=== PATIENT | female | born 1980 | race Caucasian/White ===

== ENCOUNTER 2016-10-08 14:25 | Emergency (ER) | payer OTHER ==
[~2016-10-08] VITALS: Ht 162.6 cm; Wt 122.5 kg
[~2016-10-08 14:25] MED LIST: ACETAMINOPHEN500 MG PO; ALDOMET250 MG PO; ASPIRIN81 M1 PO; FIORICET,ESG1 TABLET PO; FISH OIL300 MG PO; FLEXERIL10 MG PO; LISINOPRIL10 MG PO; Levothroid,Synthroid PO; MOTRIN600 MG PO; Motrin PO; Natalcare Rx,Pramile PO; PEPCID20 MG PO; Percocet 5/325,Endoc PO; SINGULAIR10 MG PO; SYNTHROID150 MCG PO; TRAMADOL HCL50 MG PO; VITAMIN E100 UNIT PO; ZESTORETIC,P1 TABLET PO; ZOFRAN ODT4 MG PO
[2016-10-08 15:07] LABS: HEMATOCRIT 38.3 % (36.0-46.0); MCH 26.5 PG (29.0-34.0); MCHC 32.9 G/DL (30.0-36.0); MCV 80.6 FL (83-99); MEAN PLAT.VOLUME 9.3 uM^3 (9.5-12.4); PLATELET COUNT 268 K/uL (156-360); RBC DIS.WIDTH-SD 40.4 % (39-53); RED BLOOD COUNT 4.75 M/uL (3.80-5.20); WHITE BLOOD COUNT 8.8 K/uL (4.1-10.2)
[2016-10-08 15:17] LABS: CHLORIDE 103 mEq/L (99-109); POTASSIUM 4.1 mEq/L (3.7-5.4); SODIUM 138 mEq/L (136-147)
[2016-10-08 15:19] LABS: GLUCOSE 149 mg/dL (70-99)
[2016-10-08 15:20] LABS: ANION GAP 9 MEQ/L (2-14)
[2016-10-08 15:21] LABS: TOTAL BILIRUBIN 0.3 mg/dL (0.0-1.0)
[2016-10-08 15:23] LABS: ALKALINE PHOSPHATASE 64 IU/L (3-129); GFR ESTIMATE (CALCULATED) > 59 mL/min/
[2016-10-08 15:24] LABS: UREA NITROGEN (BUN) 8 mg/dL (9-23)
[2016-10-08 16:03] LABS: ADD MIUA? YES; BILIRUBIN NEGATIVE; BLOOD MODERATE; COLOR YELLOW ((YELLOW)); GLUCOSE (STRIP) NEGATIVE; KETONES NEGATIVE; LEUKOCYTES MODERATE; NITRITE POSITIVE; PROTEIN (STRIP) 30; UROBILINOGEN 0.2 MG/DL (0.2-1.0)
[2016-10-08 16:23] LABS: BACTERIA 3+ /HPF; CASTS NONE SEEN /LPF; CRYSTALS NONE SEEN; EPITHELIAL CELLS 1+ /HPF; MUCUS NONE SEEN /LPF; RED BLOOD CELLS 0-5 /HPF (0-5); UCUL ADDED? YES; WHITE BLOOD CELLS 15-20 /HPF (0-5)
[2016-10-08] MEDS ORDERED: NAPROSYN500 MG PO (16:51)
[2016-10-08] MEDS ORDERED: ZOFRAN ODT4 MG PO (16:51)
[2016-10-08] MEDS ORDERED: KEFLEX500 MG PO (16:51)
[2016-10-08 17:07] VITALS: BP 128/89
[2016-10-08 17:08] LABS: LIPASE 24 U/L (1.0-51.0)
[2016-10-08 17:09] LABS: QUANTITATIVE HCG < 4.0 MIU/ML
== END 2016-10-08 17:08 | disposition home or self-care (01) ==
LOC: EME 14:25
DX: N15.9 Renal tubulo-interstitial disease, unspecified (principal); R11.2 Nausea with vomiting, unspecified; E03.9 Hypothyroidism, unspecified; I10 Essential (primary) hypertension; J45.909 Unspecified asthma, uncomplicated
CPT/HCPCS: 80053; 81003; 83690; 84702; 85027; 87077; 87086; 87186; 99281; 99284

== ENCOUNTER 2016-12-09 09:08 | Emergency (ER) | payer OTHER ==
[~2016-12-09] VITALS: Ht 162.6 cm; Wt 121.3 kg
[~2016-12-09 09:08] MED LIST changes: +KEFLEX500 MG PO; +NAPROSYN500 MG PO
[2016-12-09] MEDS ORDERED: LEVOTHYROXINE150 MCG PO (09:33)
[2016-12-09 09:52] LABS: BASOPHIL COUNT 0.1 K/uL (0-0.1); EOSINOPHIL (%) 1.6 % (0-5); EOSINOPHIL COUNT 0.1 K/uL (0-0.3); HEMATOCRIT 41.9 % (36.0-46.0); IMMATURE GRANULOCYTE (%) 0.5 % (0.0-0.7); INSTRUMENT ABS NEUTROPHIL CT 4.6 K/uL; LYMPHOCYTE COUNT 2.3 K/uL (1.0-2.8); MCH 25.9 PG (29.0-34.0); MCHC 31.7 G/DL (30.0-36.0); MCV 81.5 FL (83-99); MEAN PLAT.VOLUME 9.3 uM^3 (9.5-12.4); MONOCYTE (%) 5.2 % (3-12); MONOCYTE COUNT 0.4 K/uL (0-0.8); NEUTROPHIL (%) 61.4 % (45-76); NEUTROPHIL COUNT 4.6 K/uL (1.8-6.4); PLATELET COUNT 298 K/uL (156-360); RBC DIS.WIDTH-CV 14.1 % (11.8-14.6); RBC DIS.WIDTH-SD 41.4 % (39-53); RED BLOOD COUNT 5.14 M/uL (3.80-5.20); WHITE BLOOD COUNT 7.5 K/uL (4.1-10.2)
[2016-12-09 10:01] LABS: CHLORIDE 103 mEq/L (99-109); POTASSIUM 4.2 mEq/L (3.7-5.4); SODIUM 137 mEq/L (136-147)
[2016-12-09 10:03] LABS: GLUCOSE 116 mg/dL (70-99)
[2016-12-09 10:04] LABS: INTER. NORMALIZED RATIO 1.1; PROTHROMBIN TIME 10.7 (9.2-11.2)
[2016-12-09 10:05] LABS: ANION GAP 10 MEQ/L (2-14)
[2016-12-09 10:07] LABS: GFR ESTIMATE (CALCULATED) > 59 mL/min/
[2016-12-09 10:08] LABS: UREA NITROGEN (BUN) 9 mg/dL (9-23)
[2016-12-09] MEDS ORDERED: TYLENOL WITH C1 EACH PO (12:39)
[2016-12-09 12:59] VITALS: BP 141/72
== END 2016-12-09 13:10 | disposition home or self-care (01) ==
LOC: EME 09:08
PROVIDERS: Emergency Medicine
DX: M79.604 Pain in right leg (principal); M79.89 Other specified soft tissue disorders; J45.909 Unspecified asthma, uncomplicated; I10 Essential (primary) hypertension; K21.9 Gastro-esophageal reflux disease without esophagitis; E03.9 Hypothyroidism, unspecified; Z88.8 Allergy status to other drugs, medicaments and biological substances
CPT/HCPCS: 80048; 85025; 85610; 93971; 99281; 99284

== ENCOUNTER 2017-06-05 15:19 | Emergency (ER) | payer OTHER ==
[~2017-06-05] VITALS: Ht 162.6 cm; Wt 118.3 kg
[~2017-06-05 15:19] MED LIST changes: +LEVOTHYROXINE150 MCG PO; +TYLENOL WITH C1 EACH PO
[2017-06-05 16:23] LABS: HEMATOCRIT 39.7 % (36.0-46.0); MCH 27.3 PG (29.0-34.0); MCHC 32.7 G/DL (30.0-36.0); MCV 83.2 FL (83-99); MEAN PLAT.VOLUME 9.4 uM^3 (9.5-12.4); PLATELET COUNT 273 K/uL (156-360); RBC DIS.WIDTH-CV 13.1 % (11.8-14.6); RED BLOOD COUNT 4.77 M/uL (3.80-5.20); WHITE BLOOD COUNT 7.7 K/uL (4.1-10.2)
[2017-06-05 16:31] LABS: D-DIMER ELISA < 150.00 ng/mLDDU (<230)
[2017-06-05 16:35] LABS: CHLORIDE 104 mEq/L (99-109); POTASSIUM 4.2 mEq/L (3.7-5.4); SODIUM 137 mEq/L (136-147)
[2017-06-05 16:36] LABS: GLUCOSE 157 mg/dL (70-99)
[2017-06-05 16:38] LABS: ANION GAP 9 MEQ/L (2-14)
[2017-06-05 16:40] LABS: GFR ESTIMATE (CALCULATED) > 59 mL/min/
[2017-06-05 16:41] LABS: UREA NITROGEN (BUN) 11 mg/dL (9-23)
[2017-06-05 16:45] LABS: TROP-I INTERPRETATION NEGATIVE; TROPONIN-I < 0.01 ng/mL (0.0-0.30)
[2017-06-05 16:48] LABS: QUANTITATIVE HCG < 4.0 MIU/ML
[2017-06-05] MEDS ORDERED: INDOCIN50 MG PO (17:48)
[2017-06-05 18:11] VITALS: BP 147/82
== END 2017-06-05 18:11 | disposition home or self-care (01) ==
LOC: EME 15:19
PROVIDERS: Physician Assistant
DX: R09.1 Pleurisy (principal); J45.909 Unspecified asthma, uncomplicated; K21.9 Gastro-esophageal reflux disease without esophagitis; I10 Essential (primary) hypertension; E03.9 Hypothyroidism, unspecified; F41.9 Anxiety disorder, unspecified; F32.9 Major depressive disorder, single episode, unspecified; Z88.8 Allergy status to other drugs, medicaments and biological substances; Z82.3 Family history of stroke; Z82.49 Family history of ischemic heart disease and other diseases of the circulatory system
CPT/HCPCS: 71020; 80048; 84484; 84702; 85027; 85379; 93005; 99281; 99283

== ENCOUNTER 2017-06-15 16:14 | Emergency (ER) | payer OTHER ==
[~2017-06-15] VITALS: Ht 162.6 cm; Wt 119.7 kg
[~2017-06-15 16:14] MED LIST changes: +INDOCIN50 MG PO
[2017-06-15 19:01] LABS: HEMATOCRIT 39.9 % (36.0-46.0); MCH 27.2 PG (29.0-34.0); MCHC 32.8 G/DL (30.0-36.0); MEAN PLAT.VOLUME 9.3 uM^3 (9.5-12.4); PLATELET COUNT 263 K/uL (156-360); RBC DIS.WIDTH-CV 13.2 % (11.8-14.6); RBC DIS.WIDTH-SD 40.2 % (39-53); RED BLOOD COUNT 4.81 M/uL (3.80-5.20); WHITE BLOOD COUNT 10.2 K/uL (4.1-10.2)
[2017-06-15 19:11] LABS: CHLORIDE 103 mEq/L (99-109); POTASSIUM 4.1 mEq/L (3.7-5.4); SODIUM 137 mEq/L (136-147)
[2017-06-15 19:14] LABS: GLUCOSE 104 mg/dL (70-99)
[2017-06-15 19:15] LABS: ANION GAP 9 MEQ/L (2-14); TOTAL BILIRUBIN 0.3 mg/dL (0.0-1.0)
[2017-06-15 19:17] LABS: ALKALINE PHOSPHATASE 59 IU/L (3-129); GFR ESTIMATE (CALCULATED) > 59 mL/min/
[2017-06-15 19:18] LABS: UREA NITROGEN (BUN) 9 mg/dL (9-23)
[2017-06-15 19:21] LABS: LIPASE 21 U/L (1.0-51.0)
[2017-06-15 19:26] LABS: QUANTITATIVE HCG < 4.0 MIU/ML
[2017-06-15 19:51] LABS: ADD MIUA? YES; BILIRUBIN NEGATIVE; BLOOD NEGATIVE; COLOR YELLOW ((YELLOW)); GLUCOSE (STRIP) NEGATIVE; KETONES NEGATIVE; LEUKOCYTES NEGATIVE; NITRITE NEGATIVE; PROTEIN (STRIP) 30; SPECIFIC GRAVITY 1.026 (1.000-1.030); UROBILINOGEN 0.2 MG/DL (0.2-1.0)
[2017-06-15 19:55] LABS: BACTERIA RARE /HPF; CALCIUM OXALATE CRYSTALS 4+ /HPF; EPITHELIAL CELLS 3+ /HPF; MUCUS TRACE /LPF; RED BLOOD CELLS 0-5 /HPF (0-5); UCUL ADDED? NO; WHITE BLOOD CELLS 0-5 /HPF (0-5)
[2017-06-15 20:43] LABS: TROP-I INTERPRETATION NEGATIVE; TROPONIN-I < 0.01 ng/mL (0.0-0.30)
[2017-06-15 21:16] VITALS: BP 152/83
== END 2017-06-15 21:18 | disposition home or self-care (01) ==
LOC: EME 16:14
PROVIDERS: Physician Assistant Medical
DX: R10.11 Right upper quadrant pain (principal); S29.012A Strain of muscle and tendon of back wall of thorax, initial encounter; X58.XXXA Exposure to other specified factors, initial encounter; I10 Essential (primary) hypertension; J45.909 Unspecified asthma, uncomplicated; F32.9 Major depressive disorder, single episode, unspecified; E03.9 Hypothyroidism, unspecified; K21.9 Gastro-esophageal reflux disease without esophagitis; F41.9 Anxiety disorder, unspecified
CPT/HCPCS: 72070; 76705; 80053; 81003; 83690; 84484; 84702; 85027; 93005; 99281; 99284

== ENCOUNTER 2018-03-27 13:48 | Emergency (ER) | payer OTHER ==
[~2018-03-27] VITALS: Ht 162.6 cm; Wt 117.2 kg
[2018-03-27 15:18] LABS: HEMATOCRIT 42.7 % (36.0-46.0); HEMOGLOBIN 14.3 G/DL (11.9-15.5); MCH 28.3 PG (29.0-34.0); MCHC 33.5 G/DL (30.0-36.0); MCV 84.6 FL (83-99); PLATELET COUNT 269 K/uL (156-360); RBC DIS.WIDTH-CV 12.9 % (11.8-14.6); RBC DIS.WIDTH-SD 39.5 % (39-53); RED BLOOD COUNT 5.05 M/uL (3.80-5.20); WHITE BLOOD COUNT 8.5 K/uL (4.1-10.2)
[2018-03-27 15:26] LABS: ALBUMIN 4.5 g/dL (3.2-4.8); CHLORIDE 103 mEq/L (99-109); POTASSIUM 4.2 mEq/L (3.7-5.4); SODIUM 137 mEq/L (136-147)
[2018-03-27 15:29] LABS: GLUCOSE 108 mg/dL (70-99); TOTAL PROTEIN 7.7 g/dL (6.4-8.3)
[2018-03-27 15:31] LABS: TOTAL BILIRUBIN 0.5 mg/dL (0.0-1.0)
[2018-03-27 15:32] LABS: ALKALINE PHOSPHATASE 60 IU/L (3-129); CREATININE 0.8 mg/dL (0.6-1.3); GFR ESTIMATE (CALCULATED) > 59 mL/min/
[2018-03-27 15:33] LABS: UREA NITROGEN (BUN) 9 mg/dL (9-23)
[2018-03-27 15:34] LABS: AST (GOT) 33 IU/L (2-34)
[2018-03-27 15:35] LABS: ALT (GPT) 37 IU/L (3-49)
[2018-03-27 15:39] LABS: APPEARANCE CLEAR ((CLEAR)); BILIRUBIN NEGATIVE; BLOOD SMALL; COLOR YELLOW ((YELLOW)); GLUCOSE (STRIP) NEGATIVE; KETONES NEGATIVE; LEUKOCYTES NEGATIVE; NITRITE NEGATIVE; PROTEIN (STRIP) NEGATIVE; UROBILINOGEN 0.2 MG/DL (0.2-1.0)
[2018-03-27 15:52] LABS: BACTERIA NONE SEEN /HPF; EPITHELIAL CELLS 1+ /HPF; MUCUS TRACE /LPF; RED BLOOD CELLS 0-5 /HPF (0-5); UCUL ADDED? NO; WHITE BLOOD CELLS 0-5 /HPF (0-5)
[2018-03-27] MEDS ORDERED: MOTRIN800 MG PO (17:45)
[2018-03-27] MEDS ORDERED: FLOMAX0.4 MG PO (17:45)
[2018-03-27] MEDS ORDERED: ZOFRAN4 MG PO (17:45)
[2018-03-27] MEDS ORDERED: ULTRAM50 MG PO (17:49)
[2018-03-27 18:07] VITALS: BP 122/77
== END 2018-03-27 18:09 | disposition home or self-care (01) ==
LOC: EME 13:48
PROVIDERS: Nurse Practitioner Family
DX: N20.0 Calculus of kidney (principal); F32.9 Major depressive disorder, single episode, unspecified; F41.9 Anxiety disorder, unspecified; I10 Essential (primary) hypertension; K21.9 Gastro-esophageal reflux disease without esophagitis; J45.909 Unspecified asthma, uncomplicated; E03.9 Hypothyroidism, unspecified
CPT/HCPCS: 74176; 80053; 81003; 85027; 99281; 99284; J1885